=== PATIENT | female | born 1970 | race African-American/Black ===

== ENCOUNTER → 2017-01-26 | Outpatient (CLI) | payer OTHER ==
[2014-10-15 08:09] VITALS: BP 143/108
--- NOTE | 2017-01-26 15:44 | RAD ---
DATE: 01/26/2017. EXAM: DIGITAL SCREEN BILAT W/CAD. HISTORY: Routine mammographic screening. COMPARISON: 05/27/2015, 08/04/2011. This study was interpreted with the benefit of Computerized Aided Detection (CAD). FINDINGS: The breast parenchyma shows scattered fibroglandular densities. There are no suspicious masses, microcalcifications or architectural distortion. The parenchymal pattern is stable. A small nodule laterally on the left is stable. BI-RADS CATEGORY: 2 BENIGN FINDING(S). RECOMMENDED FOLLOW-UP: 12M 12 MONTH FOLLOW-UP. PQRS compliance statement: Patient information was entered into a reminder system with a target due date 01/26/2018 for the next mammogram. Mammography is a sensitive method for finding small breast cancers, but it does not detect them all and is not a substitute for careful clinical examination. A negative mammogram does not negate a clinically suspicious finding and should not result in delay in biopsying a clinically suspicious abnormality. "Our facility is accredited by the [employer] Mammography [employer]."
== END ==
LOC: MAMMO 13:16
PROVIDERS: ATTEND Family Medicine
DX: Z12.31 Encounter for screening mammogram for malignant neoplasm of breast (principal)
CPT/HCPCS: G0202; 77067

== ENCOUNTER → 2018-08-10 | Outpatient (CLI) | payer OTHER ==
[2014-10-15 08:09] VITALS: BP 143/108
--- NOTE | 2018-08-10 10:52 | RAD ---
Pelvic ultrasound dated 08/10/2018. No comparison available. CLINICAL INDICATION: Fibroids. FINDINGS: Transabdominal and transvaginal imaging performed. Uterus is retroverted and measures 9.2 x 5.1 x 7.4 cm. There are multiple nodular foci throughout the myometrium, largest of which measures 3.7 cm in size and is likely partially submucosal in location. There is also a 3.1 cm lesion near the right aspect of the uterine fundus. The endometrial complex is normal in thickness for age measuring 9 mm. Right ovary measures 3.7 x 2.7 x 2.7 cm. Left ovary measures 2.9 x 1.7 x 1.6 cm. Simple cyst or dominant follicles at each ovary measuring 1.6 cm on the left and 2.3 cm on the right. Normal color Doppler flow to both ovaries. Small amount of free pelvic fluid. IMPRESSION: 1. No acute sonographic abnormality. 2. Fibroid uterus. 3. Simple cyst or dominant follicles at each ovary measuring up to 2.3 cm maximum dimension. 4. Small amount of free pelvic fluid, nonspecific. Electronically signed by: Vik Mantilla MD (08/10/2018 10:48 AM) [id number]
--- NOTE | 2018-08-14 08:23 | RAD ---
DATE: 08/10/2018 10:00 AM EXAM: DIGITAL SCREEN BILAT W/CAD HISTORY: routine screening evaluation. COMPARISON: Mammographic imaging dating back to 08/04/2011 Bilateral full field craniocaudal and mediolateral oblique images were obtained using digital technique. This study was interpreted with the benefit of Computerized Aided Detection (CAD ). Breast Density: The breast parenchyma shows scattered fibroglandular densities. Breast parenchyma level B. FINDINGS: The parenchymal pattern is grossly stable. No new suspicious masses, microcalcifications or architectural distortion is present to suggest malignancy in either breast. The visualized axillae are unremarkable. IMPRESSION: No mammographic evidence of malignancy. BI-RADS CATEGORY: 1 NEGATIVE RECOMMENDED FOLLOW-UP: 12M 12 MONTH FOLLOW-UP Annual screening mammography is recommended, unless clinically indicated sooner based on symptoms or change in physical exam. PQRS compliance statement: Patient information was entered into a reminder system with a target due date 08/10/2019 for the next mammogram. Mammography is a sensitive method for finding small breast cancers, but it does not detect them all and is not a substitute for careful clinical examination. A negative mammogram does not negate a clinically suspicious finding and should not result in delay in biopsying a clinically suspicious abnormality. "Our facility is accredited by the [employer] Mammography [employer]." ONIELD
== END ==
LOC: US 07:09
PROVIDERS: ATTEND Family Medicine
DX: Z12.31 Encounter for screening mammogram for malignant neoplasm of breast (principal); D25.9 Leiomyoma of uterus, unspecified
CPT/HCPCS: 76830; 76856; 77067

== ENCOUNTER → 2020-11-26 | Outpatient (CLI) | payer OTHER ==
[2014-10-15 08:09] VITALS: BP 143/108
--- NOTE | 2020-11-26 09:02 | RAD ---
EXAM: Bilateral digital screening mammogram with tomosynthesis. HISTORY: 50-year-old female presents for screening mammography. TECHNIQUE: Full-field digital craniocaudal and mediolateral oblique 2D and 3D tomosynthesis images of both breasts are obtained for evaluation. Computer aided detection was applied. COMPARISON: 08/10/2018 BREAST PARENCHYMAL DENSITY: Level B - Scattered fibroglandular densities. FINDINGS: There is no new suspicious mass, microcalcification or region of architectural distortion. There are stable areas of nodularity and asymmetry within both breasts, allowing for differences in i maging technique. IMPRESSION: BI-RADS Category 2: Benign finding(s). RECOMMENDATION: Annual mammography is recommended. If your mammogram demonstrates that you have dense breast tissue, which could hide abnormalities, and if you have other risk factors for breast cancer that have been identified, you might benefit from s upplemental screening tests that may be suggested by your ordering physician. Dense breast tissue, i n and of itself, is a relatively common condition. This information is not provided to cause undue c oncern, but rather to raise your awareness and to promote discussion with your physician regarding th e presence of other risk factors, in addition to dense breast tissue. A report of your mammography re sults will be sent to you and your physician. You should contact your physician if you have any ques tions or concerns regarding this report. Mammography is a sensitive method for finding small breast cancers, but it does not detect them all a nd is not a substitute for careful clinical examination. A negative mammogram does not negate a clin ically suspicious finding and should not result in delay in biopsying a clinically suspicious abnorma lity. PQRS compliance statement - Patient information was entered into a reminder system with a target due date for the next mammogram. "Our facility is accredited by the [employer] Mammography [employer]." Electronically signed by: Norma Grimm MD (11/26/2020 9:00 AM) [id number]
== END ==
LOC: MAMMO 08:32
PROVIDERS: ATTEND Family Medicine
DX: Z12.31 Encounter for screening mammogram for malignant neoplasm of breast (principal)
CPT/HCPCS: 77063; 77067